=== PATIENT | female | born 1985 ===

== ENCOUNTER 2017-07-17 19:59 | Emergency (ER) | payer MEDICAID ==
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
[2017-07-17 22:53] VITALS: BP 100/67; PULSE 71; RESP 20; TEMP 98.1; O2SAT 100
--- NOTE | 2017-07-18 10:56 | RAD ---
PROCEDURE: Radiographs of the left tibia and fibula. HISTORY: injury to leg COMPARISON: None available. TECHNIQUE: Frontal and lateral views obtained. FINDINGS: BONES: No fracture or destructive lesion. JOINT SPACES: Unremarkable. OTHER FINDINGS: None. IMPRESSION: No acute findings related to/accounting for the clinical presentation.
--- NOTE | 2017-07-18 11:02 | RAD ---
PROCEDURE: Left Knee Radiographs. HISTORY: COMPARISON: Left tibia fibula radiographs performed 07/17/17 FINDINGS: Examination limited by habitus. BONES: No acute displaced fracture. JOINTS: No dislocation. JOINT EFFUSION: No significant joint effusion. OTHER FINDINGS: None. IMPRESSION: No acute displaced fracture, dislocation, or significant joint effusion identified. If symptoms persist, or if there is continued clinical concern, x-ray follow-up in 7-10 days should be considered.
== END 2017-07-17 23:29 | disposition home or self-care (01) ==
LOC: C.ER 19:59
DX: S83.92XA Sprain of unspecified site of left knee, initial encounter (principal); X50.1XXA Overexertion from prolonged static or awkward postures, initial encounter; Y92.811 Bus as the place of occurrence of the external cause